=== PATIENT | male | born 2000 | race African-American/Black ===

== ENCOUNTER 2024-02-26 11:24 | Emergency (ER) | payer SELFPAY ==
[~2024-02-26] VITALS: Ht 177.8 cm; Wt 68.0 kg
[2024-02-26 11:29] VITALS: O2SAT 100
[2024-02-26] MEDS: TETANUS, DIPHTHERIA, PERTUSSIS VAC/PF 0.5ML (>10YR OLD) IM ONE (11:45)
[2024-02-26] MEDS: LIDOCAINE HCL 1% 20ML VIAL INFIL ONE (12:09)
[2024-02-26 13:00] VITALS: BP 131/76; PULSE 68; RESP 16; TEMP 98.5
== END 2024-02-26 13:30 | disposition home or self-care (01) ==
LOC: ER 13:26
DX: S61.217A Laceration without foreign body of left little finger without damage to nail, initial encounter (principal); I51.7 Cardiomegaly; W45.8XXA Other foreign body or object entering through skin, initial encounter; Y93.89 Activity, other specified; Y92.89 Other specified places as the place of occurrence of the external cause; Y99.8 Other external cause status
CPT/HCPCS: 73140; 12002; 99283; J3490; Z7610 ×2